=== PATIENT | male | born 1965 | race Caucasian/White ===

== ENCOUNTER 2018-08-18 13:33 | Outpatient (CLI) | payer MEDICARE, MEDICAID ==
--- NOTE | 2018-08-18 14:17 | RAD ---
LEFT HAND TWO VIEWS: HISTORY: Pain and swelling. FINDINGS/IMPRESSION: Mild degenerative and osteoarthrosis changes without fracture, dislocation, or other acute process. POS: [facility]
== END 2018-08-18 13:34 | disposition home or self-care (01) ==
LOC: RAD 13:33
PROVIDERS: ATTEND Family Medicine
DX: M79.642 Pain in left hand (principal); M19.042 Primary osteoarthritis, left hand

== ENCOUNTER 2022-11-18 07:29 | Day surgery (SDC) | payer MEDICARE, MEDICAID ==
[2022-11-16 11:35] VITALS: BMI 36.1
[2022-11-18] MEDS ORDERED: fentaNYL PF 100 MCG/2 ML SYRINGE ONE (08:49)
[2022-11-18] MEDS ORDERED: EPINEPHrine 1 MG/ML AMP ONE (09:50)
[2022-11-18] MEDS ORDERED: Lidocaine 1% (PF) 30 ML VIAL ONE (09:50)
[2022-11-18] MEDS ORDERED: ePHEDrine Sulfate 50 MG/10 ML VIAL ONE (10:21)
[2022-11-18] MEDS ORDERED: PHENYLEPHRINE-NS 100 MCG/ML 10 ML SYRINGE ONE (10:21)
[2022-11-18] MEDS ORDERED: PROPOFOL 200 MG/20 ML VIAL ONE (10:21)
[2022-11-18] MEDS ORDERED: Ondansetron PF 4 MG/2 ML Vial ONE (10:21)
[2022-11-18] MEDS ORDERED: Lidocaine 1% PF 5 ML VIAL ONE (10:21)
[2022-11-18] MEDS ORDERED: Bacitracin Zinc Ointment 30 gm TUBE ONE (10:56)
== END 2022-11-18 13:20 | disposition home or self-care (01) ==
LOC: SDC 07:29
PROVIDERS: ATTEND Specialist
PROC: 0HB1XZZ Excision of Face Skin, External Approach (ICD-10-PCS; principal; 2022-11-18)
DX: C44.321 Squamous cell carcinoma of skin of nose (principal); E11.9 Type 2 diabetes mellitus without complications
CPT/HCPCS: 88305; 93005; 93010; J0171; J2001; J2405; J2704